=== PATIENT | female | born 1970 | race African-American/Black ===

== ENCOUNTER 2016-08-18 00:12 | Inpatient (IN) | payer OTHER ==
[~2016-08-18] VITALS: Ht 162.6 cm; Wt 77.1 kg
[~2016-08-18 00:12] MED LIST: ALBU8HFA IH; FLUT16H NASAL; MOME13HF IH; MONT10TA21 PO; PARO20TA24 PO
[2016-08-18] MEDS ORDERED: NITROGLYCERIN 2% (1 GM=INCH) PACKET TP ONE (00:45)
[2016-08-18] MEDS ORDERED: NITROGLYCERIN 400 MCG/SUBLINGUAL SPRAY 4.9 GM BOTTLE SL ONE ×2 (00:45→01:15)
[2016-08-18] MEDS ORDERED: CLOPIDOGREL BISULFATE 75 MG TABLET PO ONE (00:45)
[2016-08-18 01:01] LABS: BASOPHILS # (AUTO) 0.06 K/uL (0.00-0.20); BASOPHILS % (AUTO) 0.8 % (0.0-2.0); EOSINOPHILS % (AUTO) 1.35 % (1.0-6.0); HEMOGLOBIN 12.6 g/dL (12.0-16.0); LYMPHOCYTES # (AUTO) 2.4 K/uL (1.0-4.8); LYMPHOCYTES % (AUTO) 32.9 % (22.0-44.0); MEAN CORPUSCULAR HEMOGLOBIN 29.4 pg (26.0-34.0); MEAN CORPUSCULAR HGB CONC 33.1 G/dL (31.0-37.0); MEAN CORPUSCULAR VOLUME 89 fL (80-100); MONOCYTES # (AUTO) 0.8 K/uL (0.1-1.0); MONOCYTES % (AUTO) 10.4 % (2.0-9.0); NEUTROPHILS % (AUTO) 54.5 % (40.0-70.0); PLATELET COUNT (AUTO) 266 K/uL (150-450); RED BLOOD CELL COUNT(AUTO) 4.28 MIL/uL (4.00-5.20); RED CELL DISTRIBUTION WIDTH 14.5 % (11.5-14.5); WHITE BLOOD COUNT (AUTO) 7.3 K/uL (4.5-11.0)
[2016-08-18 01:12] LABS: ANION GAP 8 mmol/L (8-16); CALCIUM, TOTAL 9.1 mg/dL (8.8-10.5); CARBON DIOXIDE 27 mmol/L (22-29); CHLORIDE 103 mmol/L (98-107); GLOMERULAR FILTR. RATE CALC > 60 mL/min (>60); POTASSIUM 3.2 mmol/L (3.5-5.1); SODIUM SERUM 138 mmol/L (136-145); UREA NITROGEN, BLOOD 9 mg/dL (7-18)
[2016-08-18] MEDS ORDERED: MORPHINE SULFATE 2 MG/ML SYRINGE IVP ONE (01:15)
[2016-08-18 01:26] LABS: B-TYPE NATRIURETIC PEPTIDE 9 pg/mL (0-100)
[2016-08-18 01:37] LABS: ALANINE AMINOTRANSFERASE 15 U/L (12-78); ALBUMIN 2.9 g/dL (3.4-5.0); ASPARTATE AMINOTRANSFERASE 19 U/L (15-37); BILIRUBIN,TOTAL 0.2 mg/dL (0.1-1.0); CREATINE KINASE MB < 0.5 ng/mL (0-5); CREATINE KINASE, TOTAL 112 U/L (26-192); TOTAL PROTEIN, SERUM 6.8 g/dL (6.4-8.2)
[2016-08-18] MEDS ORDERED: MORPHINE SULFATE 2 MG/ML SYRINGE IVP PRN (02:00)
[2016-08-18] MEDS ORDERED: ONDANSETRON HCL 4 MG/2 ML VIAL IVP PRN (02:00)
[2016-08-18] MEDS ORDERED: DiphenhydrAMINE HCL 50 MG/ML VIAL IVP ONE (02:30)
[2016-08-18] MEDS ORDERED: NITROGLYCERIN 0.4 MG SUBLINGUAL TABLET #25 SL PRN (03:45)
[2016-08-18] MEDS ORDERED: NITROGLYCERIN 2% (1 GM=INCH) PACKET TP PRN (03:45)
[2016-08-18] MEDS: MORPHINE SULFATE 2 MG/ML SYRINGE IVP PRN ×4 (06:15→21:24)
[2016-08-18] MEDS: PARoxetine HCL 20 MG TABLET PO SCH (09:44)
[2016-08-18] MEDS: MONTELUKAST SODIUM 10 MG TABLET PO SCH (09:45)
[2016-08-18] MEDS ORDERED: POTASSIUM CHLORIDE 20 MEQ ER TABLET PO ONE (20:00)
[2016-08-18] MEDS ORDERED: POTASSIUM CHLORIDE 20 MEQ ER TABLET ONE (20:03)
[2016-08-18 20:28] VITALS: BP 120/73
[2016-08-18 21:20] VITALS: BP 101/59
[2016-08-18 23:49] VITALS: BP 100/61
[2016-08-19 01:24] VITALS: BP 101/61
[2016-08-19] MEDS: MORPHINE SULFATE 2 MG/ML SYRINGE IVP PRN ×3 (01:32→11:57)
[2016-08-19 04:33] VITALS: BP 102/59
[2016-08-19 06:07] LABS: BASOPHILS % (AUTO) 0.8 % (0.0-2.0); EOSINOPHILS % (AUTO) 2.9 % (1.0-6.0); HEMOGLOBIN 12.6 g/dL (12.0-16.0); LYMPHOCYTES # (AUTO) 2.4 K/uL (1.0-4.8); LYMPHOCYTES % (AUTO) 45.7 % (22.0-44.0); MEAN CORPUSCULAR HEMOGLOBIN 29.3 pg (26.0-34.0); MEAN CORPUSCULAR HGB CONC 32.4 G/dL (31.0-37.0); MEAN CORPUSCULAR VOLUME 90 fL (80-100); MONOCYTES # (AUTO) 0.6 K/uL (0.1-1.0); MONOCYTES % (AUTO) 11.8 % (2.0-9.0); NEUTROPHILS % (AUTO) 38.8 % (40.0-70.0); PLATELET COUNT (AUTO) 281 K/uL (150-450); RED BLOOD CELL COUNT(AUTO) 4.31 MIL/uL (4.00-5.20); RED CELL DISTRIBUTION WIDTH 13.8 % (11.5-14.5); WHITE BLOOD COUNT (AUTO) 5.2 K/uL (4.5-11.0)
[2016-08-19 06:28] LABS: ANION GAP 7 mmol/L (8-16); CALCIUM, TOTAL 8.5 mg/dL (8.8-10.5); CARBON DIOXIDE 27 mmol/L (22-29); CHLORIDE 104 mmol/L (98-107); CREATININE 0.61 mg/dL (0.60-1.30); GLOMERULAR FILTR. RATE CALC > 60 mL/min (>60); POTASSIUM 4.1 mmol/L (3.5-5.1); SODIUM SERUM 138 mmol/L (136-145); UREA NITROGEN, BLOOD 9 mg/dL (7-18)
[2016-08-19 07:43] VITALS: BP 106/56
[2016-08-19] MEDS ORDERED: ACETAMINOPHEN 325 MG TABLET PO PRN (07:45)
[2016-08-19] MEDS: PARoxetine HCL 20 MG TABLET PO SCH (08:01)
[2016-08-19] MEDS: MONTELUKAST SODIUM 10 MG TABLET PO SCH (08:01)
[2016-08-19 11:20] VITALS: BP 109/61
[2016-08-19 15:19] VITALS: BP 110/74
== END 2016-08-19 15:50 | disposition home or self-care (01) | DRG 140 ==
LOC: EMS 00:12 → 5S 19:39
PROVIDERS: ADMIT Internal Medicine; ATTEND Internal Medicine
DX: J44.1 Chronic obstructive pulmonary disease with (acute) exacerbation (principal); E43 Unspecified severe protein-calorie malnutrition; Z86.74 Personal history of sudden cardiac arrest; R07.89 Other chest pain; I25.2 Old myocardial infarction; E87.6 Hypokalemia; J45.909 Unspecified asthma, uncomplicated; N83.209 Unspecified ovarian cyst, unspecified side; F41.9 Anxiety disorder, unspecified; Z88.8 Allergy status to other drugs, medicaments and biological substances; Z88.6 Allergy status to analgesic agent; Z79.899 Other long term (current) drug therapy; Z90.710 Acquired absence of both cervix and uterus; Z68.29 Body mass index [BMI] 29.0-29.9, adult
CPT/HCPCS: 93005; 93306; 96374; 96375; 99285; J1200; J2270

== ENCOUNTER 2016-10-06 23:36 | Emergency (ER) | payer OTHER ==
[~2016-10-06] VITALS: Ht 165.1 cm; Wt 75.9 kg
[2016-10-06] MEDS ORDERED: OMEP20CA10 PO (23:50)
[2016-10-06] MEDS ORDERED: OXYC-341 PO (23:50)
[2016-10-07 00:49] LABS: BASOPHILS % (AUTO) 0.5 % (0.0-2.0); EOSINOPHILS % (AUTO) 1.4 % (1.0-6.0); HEMATOCRIT 40.9 % (36-46); HEMOGLOBIN 13.2 g/dL (12.0-16.0); MEAN CORPUSCULAR HEMOGLOBIN 28.9 pg (26.0-34.0); MEAN CORPUSCULAR HGB CONC 32.2 G/dL (31.0-37.0); MEAN CORPUSCULAR VOLUME 90 fL (80-100); MONOCYTES # (AUTO) 0.5 K/uL (0.1-1.0); MONOCYTES % (AUTO) 8.7 % (2.0-9.0); NEUTROPHILS # (AUTO) 2.9 K/uL (1.8-7.7); NEUTROPHILS % (AUTO) 53.4 % (40.0-70.0); PLATELET COUNT (AUTO) 304 K/uL (150-450); RED BLOOD CELL COUNT(AUTO) 4.56 MIL/uL (4.00-5.20); RED CELL DISTRIBUTION WIDTH 14.4 % (11.5-14.5); WHITE BLOOD COUNT (AUTO) 5.5 K/uL (4.5-11.0)
[2016-10-07 00:55] LABS: ANION GAP 8 mmol/L (8-16); CALCIUM, TOTAL 8.6 mg/dL (8.8-10.5); CARBON DIOXIDE 29 mmol/L (22-29); CHLORIDE 105 mmol/L (98-107); CREATININE 0.69 mg/dL (0.60-1.30); GLOMERULAR FILTR. RATE CALC > 60 mL/min (>60); POTASSIUM 3.9 mmol/L (3.5-5.1); SODIUM SERUM 142 mmol/L (136-145); UREA NITROGEN, BLOOD 11 mg/dL (7-18)
[2016-10-07 01:01] LABS: ALANINE AMINOTRANSFERASE 25 U/L (12-78); ALBUMIN 3.5 g/dL (3.4-5.0); ASPARTATE AMINOTRANSFERASE 24 U/L (15-37); BILIRUBIN,TOTAL 0.2 mg/dL (0.1-1.0); TOTAL PROTEIN, SERUM 7.2 g/dL (6.4-8.2)
[2016-10-07 05:13] VITALS: BP 127/79
== END 2016-10-07 05:16 | disposition home or self-care (01) ==
LOC: EMS 23:37
DX: R10.9 Unspecified abdominal pain (principal); J45.909 Unspecified asthma, uncomplicated; J44.9 Chronic obstructive pulmonary disease, unspecified; I51.9 Heart disease, unspecified; I25.2 Old myocardial infarction; Z88.6 Allergy status to analgesic agent
CPT/HCPCS: 99285